=== PATIENT | male | born 1995 | race Caucasian/White ===

== ENCOUNTER → 2019-12-03 | Outpatient (CLI) | payer OTHER ==
[~2019-12-03] MED LIST: CA C1TAB29 PO; CALC-534 PO; DIAZ5TAB PO; HYDR-3237 PO; INSU100C SQ-INSULIN; POLY17PO5 PO
== END | disposition home or self-care (01) ==
LOC: CFH 11:01
PROVIDERS: ATTEND Physician Assistant Surgical
DX: S82.55XA Nondisplaced fracture of medial malleolus of left tibia, initial encounter for closed fracture (principal); X58.XXXA Exposure to other specified factors, initial encounter; Y93.89 Activity, other specified; Y92.89 Other specified places as the place of occurrence of the external cause; Y99.8 Other external cause status